=== PATIENT | male | born 1970 ===

== ENCOUNTER 2017-06-26 14:14 | Emergency (ER) | payer OTHER ==
[2017-06-26 14:14] VITALS: BMI 21.5
[2017-06-26 14:27] VITALS: TEMP 98.5
--- NOTE | 2017-06-26 14:40 | C.PDOC ---
History Of Present Illness 46 year old male presents to the ED with complaints of anxiety and sore throat. Patient was seen in [facility] on 06/16/2017 and had a full cardiac work up. He notes sore throat developed sometime after his visit to [place]. Patient denies fever, suicidal, or homicidal ideations. Time Seen by Provider: 06/26/17 14:39 Chief Complaint (Nursing): Psychiatric Evaluation History Per: Patient History/Exam Limitations: no limitations Onset/Duration Of Symptoms: Days Current Symptoms Are (Timing): Still Present Suicide/Self Injury Attempted (Context): None Associated Symptoms: Anxiety. denies: Suicidal Thoughts, Suicidal Plan Recent travel outside of the [place]: No Additional History Per: Prior Records Past Medical History Reviewed: Historical Data, Nursing Documentation, Vital Signs Vital Signs: Last Vital Signs Temp 98.5 F 06/26/17 14:24 Pulse 97 H 06/26/17 15:39 Resp 21 06/26/17 15:39 BP 129/80 06/26/17 15:39 Pulse Ox 96 06/26/17 15:39 - Medical History PMH: Anxiety, Depression, HTN, Hypercholesterolemia - [facility]CH[facility] (03/01/16) Family History: States: Unknown Family Hx - Social History Hx Alcohol Use: No Hx Substance Use: No - Immunization History Hx Tetanus Toxoid Vaccination: No Hx Influenza Vaccination: No Hx Pneumococcal Vaccination: No Review Of Systems Constitutional: Negative for: Fever, Chills ENT: Positive for: Other (Sore throat ) Cardiovascular: Negative for: Chest Pain, Palpitations Gastrointestinal: Negative for: Nausea, Vomiting, Abdominal Pain, Diarrhea Psych: Positive for: Anxiety. Negative for: Suicidal ideation Physical Exam - Physical Exam Appears: Non-toxic, No Acute Distress Skin: Warm, Dry Head: Atraumatic Eye(s): bilateral: Normal Inspection Oral Mucosa: Moist Throat: Normal, No Erythema, No Exudate Neck: Supple Chest: Symmetrical, No Deformity Cardiovascular: Rhythm Regular Respiratory: Normal Breath Sounds, No Rales, No Rhonchi, No Wheezing Gastrointestinal/Abdominal: Soft, No Tenderness (RLQ tenderness ), No Distention , No Guarding, Other (abdomen is gravid ) Extremity: Normal ROM, No Tenderness Neurological/Psych: Oriented x3, Normal Speech, Normal Cognition, Normal Motor, Normal Sensation ED Course And Treatment O2 Sat by Pulse Oximetry: 98 (room air ) Pulse Ox Interpretation: Normal Progress Note: EKG was ordered. Reevaluation Time: 16:39 Reassessment Condition: Improved Disposition Counseled Patient/Family Regarding: Studies Performed, Diagnosis, Need For Followup - Disposition Referrals: YOUR,PMD [Other] Disposition: HOME/ ROUTINE Disposition Time: 16:39 Condition: IMPROVED Instructions: Anxiety (ED) Forms: [facility] (Turkish) - Clinical Impression Clinical Impression: Anxiety - Scribe Statement The provider has reviewed the documentation as recorded by the Scribe Lluvia Andrade All medical record entries made by the Scribe were at my direction and personally dictated by me. I have reviewed the chart and agree that the record accurately reflects my personal performance of the history, physical exam, medical decision making, and the department course for this patient. I have also personally directed, reviewed, and agree with the discharge instructions and disposition.
[2017-06-26 15:40] VITALS: BP 129/80; PULSE 97; RESP 21
[2017-06-26 16:34] LABS: RBC URINE 11 /hpf (0-3); URINE BILIRUBIN NEGATIVE (NEGATIVE); URINE BLOOD NEGATIVE (NEGATIVE); URINE COLOR Yellow (YELLOW); URINE GLUCOSE (UA) NORMAL (Normal); URINE KETONE TRACE mg/dL (NEGATIVE); URINE LEUKOCYTE ESTERASE NEG Leu/uL (Negative); URINE PROTEIN 1+ mg/dL (NEGATIVE); URINE UROBILINOGEN NORMAL mg/dL (0.2-1.0); WBC URINE 1 /hpf (0-5)
[2017-06-26 16:40] VITALS: O2SAT 98
--- NOTE | 2017-06-30 00:38 | CARD ---
APPROVED REPORT EKG Measurement Heart [id number] <Conclusion> Sinus tachycardia Otherwise normal ECG
== END 2017-06-26 16:44 | disposition home or self-care (01) ==
LOC: C.ER 14:14
DX: F41.9 Anxiety disorder, unspecified (principal)

== ENCOUNTER 2017-09-12 12:45 | Emergency (ER) | payer MEDICAID, OTHER ==
[2017-09-12 12:46] VITALS: BMI 33.4
[2017-09-12 13:53] LABS: RBC URINE 7 /hpf (0-3); URINE BILIRUBIN NEGATIVE (NEGATIVE); URINE BLOOD NEGATIVE (NEGATIVE); URINE COLOR Yellow (YELLOW); URINE GLUCOSE (UA) NORMAL (Normal); URINE KETONE TRACE mg/dL (NEGATIVE); URINE LEUKOCYTE ESTERASE NEG Leu/uL (Negative); URINE PROTEIN 2+ mg/dL (NEGATIVE); URINE UROBILINOGEN NORMAL mg/dL (0.2-1.0); WBC URINE 1 /hpf (0-5)
[2017-09-12 14:33] LABS: BASO # 0.1 K/uL (0.0-0.2); BASO % 0.5 % (0.0-2.0); EOS # 0.1 K/uL (0.0-0.7); HEMATOCRIT 39.4 % (35.0-51.0); LYMPH # 2.5 K/uL (1.0-4.3); LYMPH % 22.2 % (20.0-40.0); MEAN CELL VOLUME 83.8 fL (80.0-94.0); MEAN CORPUSCULAR HEMOGLOBIN 28.5 pg (27.0-31.0); MEAN CORPUSCULAR HGB CONC 34.1 g/dL (33.0-37.0); MONO # 1.1 K/uL (0.0-0.8); MONO % 10.1 % (0.0-10.0); NRBC % 0.1 % (0.0-2.0); RED CELL DISTRIBUTION WIDTH 14.1 % (11.5-14.5); WHITE BLOOD COUNT 11.2 K/uL (4.8-10.8)
[2017-09-12 14:47] LABS: ALCOHOL SERUM < 10 mg/dl (0-10); ALKALINE PHOSPHATASE 102 U/L (38-126); ALT/SGPT 40 U/L (21-72); AST/SGOT 32 U/L (17-59); BILIRUBIN,TOTAL 1.6 mg/dL (0.2-1.3); BLOOD UREA NITROGEN 16 mg/dL (9-20); CALCIUM 8.8 mg/dl (8.6-10.4); CARBON DIOXIDE 24 mmol/L (22-30); CHLORIDE 96 mmol/L (98-107); GFR AFRICAN-AMERICAN > 60; GLUCOSE,RANDOM 84 mg/dL (75-110); POTASSIUM 2.9 mmol/L (3.6-5.2); SODIUM 134 mmol/L (132-148); TOTAL PROTEIN 8.4 g/dL (6.3-8.3)
[2017-09-12 14:52] LABS: ALB/GLOB RATIO 1.1 (1.0-2.1)
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
[2017-09-12] MEDS ORDERED: Potassium Chloride 10 mEq ER Tab PO STA (16:59)
[2017-09-12] MEDS ORDERED: Potassium Chloride 20 mEq ER Tab PO STA ×2 (17:22→17:32)
[2017-09-12] MEDS ORDERED: Potassium Chloride 20 mEq ER Tab PO ONE (17:27)
[2017-09-12 19:19] VITALS: RESP 18
[2017-09-12] MEDS ORDERED: Potassium Chloride 20 mEq/15 ml LIQ UD PO STA (19:37)
[2017-09-12] MEDS ORDERED: Potassium Chloride 20 mEq/15 ml LIQ UD ONE (20:17)
[2017-09-12 22:42] LABS: ALB/GLOB RATIO 1.6 (1.0-2.1); ALKALINE PHOSPHATASE 97 U/L (38-126); ALT/SGPT 37 U/L (21-72); AST/SGOT 24 U/L (17-59); BILIRUBIN,TOTAL 1.2 mg/dL (0.2-1.3); BLOOD UREA NITROGEN 16 mg/dL (9-20); CALCIUM 8.6 mg/dl (8.6-10.4); CARBON DIOXIDE 27 mmol/L (22-30); CHLORIDE 96 mmol/L (98-107); GFR AFRICAN-AMERICAN > 60; GLUCOSE,RANDOM 117 mg/dL (75-110); POTASSIUM 3.7 mmol/L (3.6-5.2); SODIUM 134 mmol/L (132-148); TOTAL PROTEIN 7.2 g/dL (6.3-8.3)
[2017-09-13 06:24] VITALS: BP 121/81; PULSE 81; TEMP 97.8; O2SAT 98
--- NOTE | 2017-09-13 08:41 | RAD ---
HISTORY: Psychiatric admission COMPARISON: No prior. FINDINGS: LUNGS: Mild venous congestion. PLEURA: No significant pleural effusion identified, no pneumothorax apparent. CARDIOVASCULAR: Mild cardiomegaly. OSSEOUS STRUCTURES: No significant abnormalities. VISUALIZED UPPER ABDOMEN: Normal. OTHER FINDINGS: None. IMPRESSION: Mild venous congestion.
--- NOTE | 2017-09-13 19:00 | CARD ---
APPROVED REPORT EKG Measurement Heart [id number] [place] [id number] <Conclusion> Normal sinus rhythm Normal ECG
== END 2017-09-13 07:09 | disposition home or self-care (01) ==
LOC: C.ER 12:45
DX: F20.9 Schizophrenia, unspecified (principal); E87.6 Hypokalemia
CPT/HCPCS: 71010; 80053; 80320; 80324; 80345; 80346; 80349; 80353; 80358; 80361; 81001; 83992; 84132; 85025; 93005; 96372; 99285; J2060